=== PATIENT | male | born 1980 | race Caucasian/White ===

== ENCOUNTER 2018-11-17 15:13 | Outpatient (CLI) ==
--- NOTE | 2018-11-17 16:59 | MRI ---
EXAM: MRI left elbow without contrast. HISTORY: Left elbow pain. No known injury. Pain all olecranon process area. No left elbow surgery reported. TECHNIQUE: Using a local extremity coil on a high field strength magnet, multiplanar multisequence M RI was performed of the left elbow without intravenous or intra-articular gadolinium contrast. FINDINGS: I do not have prior radiographs of the left elbow available for comparison at the time of this dictation. The alignment of the left elbow shows no dislocation or joint subluxations. Bone marrow signal inten sity shows no acute fracture, stress fracture or bone erosions. Physiologic amount of fluid left elb ow joint. No large osteochondral loose bodies. Posteriorly the distal triceps tendon intact. More deep to the tendinous fibers themselves is a fusiform shaped soft tissue mass intramuscular. This me asures 14.4 mm craniocaudad by 7.6 mm in anterior-posterior by 8.3 mm transverse. Isointense to musc le T1 signal intensity. Bright T2 signal intensity. Some internal heterogeneity on long TR images. No intravenous contrast administered. This is centered 15 mm deep to the skin surface posteriorly. No surrounding bursitis. Within the anterior compartment distal brachialis and biceps brachii tendi nous fibers intact. Within the lateral compartment the radial collateral ligament as well as lateral ulnar collateral lig ament and annular ligament intact. Common extensor tendon origin intact. Within the medial compartment the ulnar collateral ligament intact. Origin of the flexor pronator wa d intact as well. The ulnar nerve is located in expected position within the cubital tunnel and with in normal limit in signal intensity and morphology. IMPRESSION: Distal triceps tendon intact. No olecranon bursitis. More deep to the distal triceps tendinous fibers themselves is a fusiform shaped soft tissue mass int ramuscular involving the distal triceps muscle. This measures 14 mm approximately. Differential ralph gnosis might include peripheral nerve sheath tumor. Recommendation is dedicated color Doppler sonogr aphy for further characterization (i.e. intrinsic blood flow). Vascular malformation or lymph node i s considered. Recommendation is obtainment and correlation with plain film radiographs of the left elbow as none ar e available for comparison at the time of this dictation.
== END 2018-11-17 15:14 | disposition home or self-care (01) ==
LOC: RAD 15:13
PROVIDERS: ATTEND Nurse Practitioner
DX: M25.522 Pain in left elbow (principal)